=== PATIENT | male | born 1955 | race Caucasian/White ===

== ENCOUNTER → 2017-01-25 | Outpatient (CLI) | payer OTHER ==
[~2017-01-25] MED LIST: FLEXERIL10 MG PO; GLIPIZIDE10 MG PO; LIPITOR20 MG PO; LORTAB 7.5-5001 TAB PO; LOSARTAN POTASS25 MG PO; METFORMIN HCL1000 M1 PO; MOBIC15 MG PO; NO HOME MEDS; NO MEDICATIONS; NORCO 10-325 TA1 TAB PO; TRADJENTA5 MG PO
--- NOTE | ~2017-01-25 | US6 ---
[facility] A Service of [facility] RADIOLOGY TEXT RESULTS PATIENT: LINA MUNGUIA [facility] 57 UNIT #: [id number] AGE: [address]: Kirt Siddiqui MD SEX: M ORDER DR: [id number] [place] [id number] O MR#: [id number] Acc #: [id number] NAME: LINA MUNGUIA : 1955 SEX: M STUDY DATE/TIME: 01/25/2017 8:07 UNIT: SG ROOM: STUDY DESCRIPTION: US Abdominal Limited Attending Physician: Kirt Siddiqui M.D. Referring Physician: Kirt Siddiqui M.D. Ordering Physician: Kirt Siddiqui M.D. Primary Care Physician: Kirt Siddiqui M.D. MEDICAL IMAGING REPORT This report is preliminary unless electronic signature is present. EXAM Right upper quadrant abdominal ultrasound INDICATION Elevated liver enzyme levels for the past 2 weeks. PROCEDURE Espitia-scale and Doppler imaging right upper quadrant of the abdomen. COMPARISON None FINDINGS Pancreas is mostly obscured and not well seen. Liver measures 18.8 cm. No liver mass is seen on submitted images. Liver is slightly hyperechoic to the right kidney. Right kidney measures 12.9 cm. No hydronephrosis. A second submitted image of the liver measures up to 20.7 cm. Previous cholecystectomy. No appreciable bile duct dilation. IMPRESSION 1. Hepatomegaly with slightly increased liver echotexture probably representing changes of steatosis. 2. No clearly acute finding. 3. Previous cholecystectomy. Dictated by... John Cardenas M.D. THIS IS AN ELECTRONICALLY VERIFIED REPORT John Cardenas M.D. at 01/28/2017 8:22 AM ANATOLY/lexx [facility] A Service [facility] RADIOLOGY TEXT RESULTS PATIENT: LINA MUNGUIA [facility] 57 UNIT #: [id number] AGE: [address]: Kirt Siddiqui MD SEX: M ORDER DR: TD: 01/25/2017 10:05 JOB #: [id number] MEDICAL IMAGING REPORT Page 1 of 1
== END | disposition home or self-care (01) ==
LOC: SGUS 07:56
DX: R79.89 Other specified abnormal findings of blood chemistry (principal); R16.0 Hepatomegaly, not elsewhere classified; Z90.49 Acquired absence of other specified parts of digestive tract
CPT/HCPCS: 76705